=== PATIENT | male | born 1975 | race Caucasian/White ===

== ENCOUNTER 2025-03-25 11:01 | Inpatient (IN) | payer OTHER ==
[~2025-03-25] VITALS: Ht 185.4 cm; Wt 84.1 kg
[2025-03-25] MEDS ORDERED: [UNRECOGNIZED DRUG - CODE] PO (11:42)
[2025-03-25] MEDS ORDERED: INSLAN SQ (11:47)
[2025-03-25] MEDS ORDERED: LISI-894 PO (11:47)
[2025-03-25] MEDS ORDERED: PANT-31 PO (11:47)
[2025-03-25] MEDS ORDERED: PROP20TA18 PO (11:47)
[2025-03-25] MEDS ORDERED: LEVO750T68 PO (11:47)
[2025-03-25] MEDS ORDERED: TRAZ-257 PO (11:47)
[2025-03-25] MEDS ORDERED: PRAZ2 PO (11:47)
[2025-03-25] MEDS ORDERED: METF-1211 PO (11:47)
[2025-03-25 12:10] LABS: GLUCOMETER DEV NAME(LOC) ERT.7; GLUCOSE,POINT OF CARE 231 MG/DL (70-110)
[2025-03-25 12:24] LABS: APPEARANCE,URINE CLEAR (CLEAR); GLUCOSE, URINE (UA) >=1000 mg/dL (NEGATIVE); LEUKOCYTE ESTERASE ,URINE NEGATIVE (NEGATIVE); NITRATE,URINE NEGATIVE (NEGATIVE); OCCULT BLOOD,URINE NEGATIVE (NEGATIVE); SPECIFIC GRAVITIY, URINE 1.031 (1.003-1.030)
[2025-03-25 12:26] LABS: PLATELET COUNT (AUTO) 242 K/uL (150-450); RED BLOOD CELL COUNT(AUTO) 4.32 MIL/uL (4.50-5.90); RED CELL DISTRIBUTION WIDTH 15.0 % (11.5-14.5); WHITE BLOOD COUNT (AUTO) 10.9 K/uL (4.5-11.0)
[2025-03-25 12:30] LABS: CALCIUM, TOTAL 9.0 mg/dL (8.8-10.5); CREATININE 0.85 mg/dL (0.60-1.30); GLOMERULAR FILTR. RATE CALC > 60 mL/min (>60); GLUCOSE,RANDOM 226 mg/dL (70-110); SODIUM SERUM 139 mmol/L (136-145); UREA NITROGEN, BLOOD 19 mg/dL (7-18)
[2025-03-25 12:43] LABS: SQUAMOUS EPITHELIAL CELL,UR None Seen /LPF (None Seen)
[2025-03-25] MEDS: BUPRENORPHINE HCL/NALOXONE HCL 2-0.5 MG SUBLINGUAL TABLET SL ONE (13:14)
[2025-03-25 14:16] LABS: LACTIC ACID 2.3 mmol/L (0.4-2.0)
[2025-03-25] MEDS ORDERED: ONDANSETRON HCL 4 MG/2 ML VIAL IVP PRN (14:30)
[2025-03-25] MEDS ORDERED: ACETAMINOPHEN 325 MG TABLET PO PRN (14:30)
[2025-03-25] MEDS: SODIUM CHLORIDE 0.9% 1,000 ML IV SCH (15:14)
[2025-03-25] MEDS ORDERED: SODIUM CHLORIDE 0.9% 100 ML ONE (15:42)
[2025-03-25] MEDS ORDERED: 0.9% SODIUM CHLORIDE 10 ML SYRINGE IVP ONE (15:42)
[2025-03-25] MEDS ORDERED: IOHEXOL 350 MG/ML 100 ML VIAL ONE (15:42)
[2025-03-25] MEDS: VANCOMYCIN 1GM/WATER(PEG/NADA) 200 ML IV ONE (15:44)
[2025-03-25] MEDS ORDERED: DEXTROSE 50%-WATER 25 GM/50 ML SYRINGE IVP PRN (15:45)
[2025-03-25 17:24] VITALS: BP 122/71; PULSE 55; RESP 18; TEMP 97.3; O2SAT 98
[2025-03-25] MEDS: HEPARIN SODIUM,PORCINE 5,000 UNITS/ML VIAL SQ SCH (17:58)
[2025-03-25] MEDS: INSULIN LISPRO 100 UNITS/ML SQ PRN (18:27)
[2025-03-25 20:06] LABS: GLUCOMETER DEV NAME(LOC) 6S.1D; GLUCOSE,POINT OF CARE 181 MG/DL (70-110)
[2025-03-25] MEDS: BUPRENORPHINE HCL/NALOXONE HCL 2-0.5 MG SUBLINGUAL TABLET SL SCH (20:38)
[2025-03-25 20:51] VITALS: BP 133/78; PULSE 79; RESP 18; TEMP 97.9; O2SAT 100
[2025-03-25] MEDS: INSULIN GLARGINE,HUM.REC.ANLOG 100 UNITS/ML SQ SCH (21:04)
[2025-03-25] MEDS: PRAZOSIN HCL 2 MG CAPSULE PO SCH (23:29)
[2025-03-25] MEDS: VANCOMYCIN 1GM/WATER(PEG/NADA) 200 ML IV SCH (23:30)
[2025-03-26 06:42] LABS: PLATELET COUNT (AUTO) 202 K/uL (150-450); RED BLOOD CELL COUNT(AUTO) 3.93 MIL/uL (4.50-5.90); RED CELL DISTRIBUTION WIDTH 14.9 % (11.5-14.5); WHITE BLOOD COUNT (AUTO) 7.1 K/uL (4.5-11.0)
[2025-03-26 06:51] LABS: CALCIUM, TOTAL 8.4 mg/dL (8.8-10.5); CREATININE 0.83 mg/dL (0.60-1.30); GLOMERULAR FILTR. RATE CALC > 60 mL/min (>60); GLUCOSE,RANDOM 154 mg/dL (70-110); SODIUM SERUM 139 mmol/L (136-145); UREA NITROGEN, BLOOD 16 mg/dL (7-18)
[2025-03-26 07:35] LABS: GLUCOMETER DEV NAME(LOC) 6S.2; GLUCOSE,POINT OF CARE 152 MG/DL (70-110)
[2025-03-26 07:43] VITALS: BP 133/76; PULSE 71; RESP 18; TEMP 97.8; O2SAT 100
[2025-03-26] MEDS: ASPIRIN 81 MG CHEWABLE TABLET PO SCH (10:45)
[2025-03-26] MEDS ORDERED: PROP60CA31 PO (12:41)
[2025-03-26] MEDS: NICOTINE 14 MG/24 HOUR PATCH TD ONE (15:18)
[2025-03-26] MEDS: PROPRANOLOL HCL 60 MG ER CAPSULE PO ONE (15:19)
[2025-03-26 15:26] LABS: GLUCOMETER DEV NAME(LOC) 6S.2; GLUCOSE,POINT OF CARE 256 MG/DL (70-110)
[2025-03-26 19:34] VITALS: BP 119/76; PULSE 64; RESP 18; TEMP 98.4; O2SAT 96
[2025-03-26] MEDS: MAGNESIUM OXIDE 400 MG TABLET PO ONE (21:41)
[2025-03-27 05:18] VITALS: BP 100/63; PULSE 54; RESP 18; TEMP 98.4; O2SAT 100
[2025-03-27 05:55] LABS: GLUCOMETER DEV NAME(LOC) 6S.1D; GLUCOSE,POINT OF CARE 193 MG/DL (70-110)
[2025-03-27 05:55] LABS: GLUCOMETER DEV NAME(LOC) 6S.2; GLUCOSE,POINT OF CARE 171 MG/DL (70-110)
[2025-03-27 05:55] LABS: GLUCOMETER DEV NAME(LOC) 6S.1D; GLUCOSE,POINT OF CARE 223 MG/DL (70-110)
[2025-03-27 07:30] LABS: GLUCOMETER DEV NAME(LOC) 6N.2C; GLUCOSE,POINT OF CARE 120 MG/DL (70-110)
[2025-03-27 07:58] LABS: CALCIUM, TOTAL 8.3 mg/dL (8.8-10.5); CREATININE 0.78 mg/dL (0.60-1.30); GLOMERULAR FILTR. RATE CALC > 60 mL/min (>60); GLUCOSE,RANDOM 118 mg/dL (70-110); SODIUM SERUM 140 mmol/L (136-145); UREA NITROGEN, BLOOD 14 mg/dL (7-18)
[2025-03-27] MEDS: PROPRANOLOL HCL 60 MG ER CAPSULE PO SCH (08:26)
[2025-03-27] MEDS: ATORVASTATIN CALCIUM 40 MG TABLET PO SCH (08:27)
[2025-03-27] MEDS: PANTOPRAZOLE SODIUM 40 MG DR TABLET PO SCH (08:27)
[2025-03-27 08:29] VITALS: BP 136/80; PULSE 65; RESP 18; TEMP 98.4; O2SAT 100
[2025-03-27] MEDS: VANCOMYCIN 1.25 GM/WATER(PEG) 250 ML IV SCH (08:33)
[2025-03-27] MEDS ORDERED: [UNRECOGNIZED DRUG - OTHER] PO SCH (09:00)
[2025-03-27 17:51] LABS: GLUCOMETER DEV NAME(LOC) 6S.2; GLUCOSE,POINT OF CARE 200 MG/DL (70-110)
[2025-03-27 17:51] LABS: GLUCOMETER DEV NAME(LOC) 6S.2; GLUCOSE,POINT OF CARE 247 MG/DL (70-110)
[2025-03-27 19:30] VITALS: BP 145/86; PULSE 58; RESP 20; TEMP 98.1; O2SAT 100
[2025-03-27] MEDS: BUPRENORPHINE HCL/NALOXONE HCL 2-0.5 MG SUBLINGUAL TABLET SL SCH (20:31)
[2025-03-27] MEDS ORDERED: BUPRENORPHINE HCL/NALOXONE HCL 2-0.5 MG SUBLINGUAL TABLET SL SCH (21:00)
[2025-03-27] MEDS: NICOTINE 14 MG/24 HOUR PATCH TD SCH (23:12)
[2025-03-28 04:25] VITALS: BP 131/86; PULSE 69; RESP 18; TEMP 97.5; O2SAT 99
[2025-03-28 06:26] LABS: GLUCOMETER DEV NAME(LOC) 6N.2C; GLUCOSE,POINT OF CARE 170 MG/DL (70-110)
[2025-03-28 06:59] LABS: CALCIUM, TOTAL 8.5 mg/dL (8.8-10.5); CREATININE 0.71 mg/dL (0.60-1.30); GLOMERULAR FILTR. RATE CALC > 60 mL/min (>60); GLUCOSE,RANDOM 184 mg/dL (70-110); SODIUM SERUM 141 mmol/L (136-145); UREA NITROGEN, BLOOD 13 mg/dL (7-18)
[2025-03-28 08:22] VITALS: BP 122/73; PULSE 61; RESP 18; TEMP 98.2; O2SAT 98
[2025-03-28] MEDS ORDERED: GADOTERATE MEGLUMINE 10 MMOL/20 ML VIAL IVP ONE (09:19)
[2025-03-28 11:21] LABS: GLUCOMETER DEV NAME(LOC) 6N.2C; GLUCOSE,POINT OF CARE 200 MG/DL (70-110)
[2025-03-28 12:21] LABS: GLUCOMETER DEV NAME(LOC) 6S.1D; GLUCOSE,POINT OF CARE 166 MG/DL (70-110)
[2025-03-28 12:21] LABS: GLUCOMETER DEV NAME(LOC) 6S.1D; GLUCOSE,POINT OF CARE 242 MG/DL (70-110)
[2025-03-28 19:25] VITALS: BP 134/77; PULSE 71; RESP 18; TEMP 98.1; O2SAT 97
[2025-03-28] MEDS: INSULIN GLARGINE,HUM.REC.ANLOG 100 UNITS/ML SQ SCH (20:21)
[2025-03-29 02:40] LABS: GLUCOMETER DEV NAME(LOC) 6S.2; GLUCOSE,POINT OF CARE 208 MG/DL (70-110)
[2025-03-29 02:40] LABS: GLUCOMETER DEV NAME(LOC) 6S.2; GLUCOSE,POINT OF CARE 238 MG/DL (70-110)
[2025-03-29 05:56] LABS: GLUCOMETER DEV NAME(LOC) 6S.1D; GLUCOSE,POINT OF CARE 137 MG/DL (70-110)
[2025-03-29 05:58] LABS: CALCIUM, TOTAL 8.5 mg/dL (8.8-10.5); CREATININE 0.76 mg/dL (0.60-1.30); GLOMERULAR FILTR. RATE CALC > 60 mL/min (>60); GLUCOSE,RANDOM 138 mg/dL (70-110); SODIUM SERUM 140 mmol/L (136-145); UREA NITROGEN, BLOOD 15 mg/dL (7-18)
[2025-03-29 08:35] VITALS: BP 126/69; PULSE 70; RESP 18; TEMP 98.1; O2SAT 99
[2025-03-29 16:30] VITALS: BP 144/76; PULSE 82; RESP 18; O2SAT 100
[2025-03-29 18:40] LABS: GLUCOMETER DEV NAME(LOC) 6N.2C; GLUCOSE,POINT OF CARE 213 MG/DL (70-110)
[2025-03-29 20:12] VITALS: BP 144/76; PULSE 63; RESP 16; TEMP 97.8; O2SAT 99
[2025-03-30 01:36] LABS: GLUCOMETER DEV NAME(LOC) 6S.1D; GLUCOSE,POINT OF CARE 273 MG/DL (70-110)
[2025-03-30 05:34] VITALS: BP 126/74; PULSE 61; RESP 17; TEMP 97.3; O2SAT 99
[2025-03-30 06:24] LABS: CALCIUM, TOTAL 8.7 mg/dL (8.8-10.5); CREATININE 0.81 mg/dL (0.60-1.30); GLOMERULAR FILTR. RATE CALC > 60 mL/min (>60); GLUCOSE,RANDOM 219 mg/dL (70-110); SODIUM SERUM 138 mmol/L (136-145); UREA NITROGEN, BLOOD 18 mg/dL (7-18)
[2025-03-30 07:34] VITALS: BP 118/70; PULSE 59; RESP 19; TEMP 98.1; O2SAT 98
[2025-03-30] MEDS ORDERED: ASPIRIN 81 MG DR TABLET PO PRN (12:30)
[2025-03-30] MEDS: ASPIRIN 81 MG CHEWABLE TABLET PO PRN (13:27)
[2025-03-30] MEDS: ERTAPENEM SODIUM 1 GM in SODIUM CHLORIDE 0.9% 50 ML IV SCH (15:45)
[2025-03-30 17:16] LABS: GLUCOMETER DEV NAME(LOC) 6S.2; GLUCOSE,POINT OF CARE 226 MG/DL (70-110)
[2025-03-30 17:16] LABS: GLUCOMETER DEV NAME(LOC) 6S.2; GLUCOSE,POINT OF CARE 195 MG/DL (70-110)
[2025-03-30 17:51] LABS: GLUCOMETER DEV NAME(LOC) 6N.2C; GLUCOSE,POINT OF CARE 201 MG/DL (70-110)
[2025-03-30 20:17] VITALS: BP 119/79; PULSE 68; RESP 18; TEMP 99; O2SAT 98
[2025-03-31 03:44] VITALS: BP 117/61; PULSE 59; RESP 18; TEMP 98.2; O2SAT 98
[2025-03-31 06:37] LABS: CALCIUM, TOTAL 8.7 mg/dL (8.8-10.5); CREATININE 0.73 mg/dL (0.60-1.30); GLOMERULAR FILTR. RATE CALC > 60 mL/min (>60); GLUCOSE,RANDOM 155 mg/dL (70-110); SODIUM SERUM 139 mmol/L (136-145); UREA NITROGEN, BLOOD 20 mg/dL (7-18)
[2025-03-31 08:24] VITALS: BP 122/67; PULSE 57; RESP 18; TEMP 98.1; O2SAT 98
[2025-03-31 11:01] LABS: GLUCOMETER DEV NAME(LOC) 6S.2; GLUCOSE,POINT OF CARE 162 MG/DL (70-110)
[2025-03-31 11:01] LABS: GLUCOMETER DEV NAME(LOC) 6S.2; GLUCOSE,POINT OF CARE 158 MG/DL (70-110)
[2025-03-31] MEDS ORDERED: DiphenhydrAMINE HCL 25 MG/10 ML SOLUTION UDCUP PO ONE (12:15)
[2025-03-31 14:15] LABS: GLUCOMETER DEV NAME(LOC) 6N.2C; GLUCOSE,POINT OF CARE 265 MG/DL (70-110)
[2025-03-31] MEDS: ERTAPENEM SODIUM 1 GM in SODIUM CHLORIDE 0.9% 50 ML IV SCH (15:00)
[2025-03-31] MEDS ORDERED: LIDOCAINE 1% 10 ML VIAL SQ ONE (15:45)
[2025-03-31] MEDS ORDERED: 0.9% SODIUM CHLORIDE 10 ML SYRINGE IVP PRN (15:45)
[2025-03-31 19:26] VITALS: BP 130/78; PULSE 62; RESP 19; TEMP 98.7; O2SAT 100
[2025-03-31 20:26] LABS: GLUCOMETER DEV NAME(LOC) 6S.1D; GLUCOSE,POINT OF CARE 225 MG/DL (70-110)
[2025-03-31] MEDS: NYSTATIN 15 GM POWDER BOTTLE TP SCH (21:05)
[2025-04-01 02:46] LABS: GLUCOMETER DEV NAME(LOC) 6S.2; GLUCOSE,POINT OF CARE 210 MG/DL (70-110)
[2025-04-01 04:19] VITALS: BP 115/62; PULSE 65; RESP 18; TEMP 97.9; O2SAT 98
[2025-04-01 06:44] LABS: CALCIUM, TOTAL 8.5 mg/dL (8.8-10.5); CREATININE 0.71 mg/dL (0.60-1.30); GLOMERULAR FILTR. RATE CALC > 60 mL/min (>60); GLUCOSE,RANDOM 163 mg/dL (70-110); SODIUM SERUM 140 mmol/L (136-145); UREA NITROGEN, BLOOD 22 mg/dL (7-18)
[2025-04-01 08:00] VITALS: BP 133/68; PULSE 60; RESP 19; TEMP 97.7; O2SAT 99
[2025-04-01] MEDS: LORazepam 2 MG/ML VIAL IVP ONE (08:59)
[2025-04-01] MEDS ORDERED: LORazepam 2 MG/ML VIAL IVP ONE (09:00)
[2025-04-01 11:45] LABS: GLUCOMETER DEV NAME(LOC) 6S.1D; GLUCOSE,POINT OF CARE 170 MG/DL (70-110)
[2025-04-01 16:00] LABS: GLUCOMETER DEV NAME(LOC) 6S.2; GLUCOSE,POINT OF CARE 198 MG/DL (70-110)
== END 2025-04-01 16:00 | disposition left against medical advice (07) | DRG 540 ==
LOC: EMS 11:07 → EDH 13:28 → 6N 17:15
PROVIDERS: ADMIT Internal Medicine; ATTEND Internal Medicine
PROC: 05HY33Z Insertion of Infusion Device into Upper Vein, Percutaneous Approach (ICD-10-PCS; principal; 2025-04-01)
PROC: B54MZZA Ultrasonography of Right Upper Extremity Veins, Guidance (ICD-10-PCS; 2025-04-01)
DX: M86.172 Other acute osteomyelitis, left ankle and foot (principal); Z16.24 Resistance to multiple antibiotics; R10.9 Unspecified abdominal pain; E11.65 Type 2 diabetes mellitus with hyperglycemia; G89.4 Chronic pain syndrome; N50.819 Testicular pain, unspecified; I10 Essential (primary) hypertension; F43.10 Post-traumatic stress disorder, unspecified; F90.9 Attention-deficit hyperactivity disorder, unspecified type; K21.9 Gastro-esophageal reflux disease without esophagitis; E11.69 Type 2 diabetes mellitus with other specified complication; Z53.29 Procedure and treatment not carried out because of patient's decision for other reasons; Z88.2 Allergy status to sulfonamides; Z88.0 Allergy status to penicillin; Z88.1 Allergy status to other antibiotic agents; Z88.8 Allergy status to other drugs, medicaments and biological substances; Z91.199 Patient's noncompliance with other medical treatment and regimen due to unspecified reason; Z86.14 Personal history of Methicillin resistant Staphylococcus aureus infection
CPT/HCPCS: 36245; 36569; 71045; 73700; 73723; 74177; 76870; 76937; 80048; 80202; 81001; 82962; 83605; 83735; 85025; 87040; 93005; 93925; 96365; 96366; 99285; J1335; J1644; J1815; J2060; J7030; J7050; 36415-L1; 36415-TC